=== PATIENT | female | born 1945 | race Caucasian/White ===

== ENCOUNTER 2020-04-15 07:32 | Emergency (ER) | payer MEDICARE, OTHER ==
[~2020-04-15 07:32] MED LIST: CIPRO500 MG PO; METRONIDAZOLE500 MG PO
[2020-04-15 08:37] LABS: BASOPHIL 0.3 % (0-2); EOSINOPHIL 0.3 % (0-7); HCT 46.9 % (37.0-47.0); HGB 15.2 g/dl (12.5-16.0); LYMPHOCYTE 3.8 % (15-48); MCH 29.5 pg (25.0-31.0); MCHC 32.4 g/dL (32.0-36.0); MCV 90.9 fL (78.0-100.0); MONOCYTE 4.9 % (0-12); MPV 10.9 fL (6.0-9.5); NEUTROPHIL 88.8 % (41-80); NRBC 0; PLT 243 K/uL (150-400); RBC 5.16 M/uL (4.20-5.40); RDW 13.9 % (11.5-14.0); WBC 19.7 K/uL (4.0-10.5)
[2020-04-15 09:01] LABS: ALBUMIN 2.8 g/dL (3.4-5.0); BILIRUBIN - TOTAL 1.6 mg/dL (0.2-1.0); BUN/CREAT RATIO (CALC) 14.4 RATIO; CREATININE 1.74 mg/dL (0.51-0.95); GLOBULIN (CALCULATION) 4.1 g/dL; POTASSIUM 3.2 mmol/L (3.5-5.1); TOTAL PROTEIN 6.9 g/dL (6.4-8.2)
[2020-04-15] MEDS ORDERED: KEFLEX500 MG PO (10:50)
[2020-04-15] MEDS ORDERED: VALACYCLOVIR1000 MG PO (10:50)
[2020-04-15] MEDS ORDERED: ZOFRAN4 M1 PO (10:50)
[2020-04-15] MEDS ORDERED: PREDNISONE 20MG20 MG PO (10:50)
[2020-04-15] MEDS ORDERED: NORCO 5-325 TA1 EACH PO (10:50)
== END 2020-04-15 11:10 | disposition home or self-care (01) ==
LOC: FER 07:32
PROVIDERS: Emergency Medicine
DX: B02.9 Zoster without complications (principal); L03.312 Cellulitis of back [any part except buttock and flank]; I10 Essential (primary) hypertension; F17.210 Nicotine dependence, cigarettes, uncomplicated
CPT/HCPCS: 36415; 71046; 80053; 84145; 85025; 87040; J1170; J2405; J2930; J7030